=== PATIENT | female | born 1965 | race Caucasian/White ===

== ENCOUNTER 2016-06-06 13:31 | Emergency (ER) | payer BC, OTHER ==
[~2016-06-06] VITALS: Ht 157.5 cm; Wt 79.9 kg
[~2016-06-06 13:31] MED LIST: AMPH30CA3 PO; BUTA1CAP17; CIPR-255 PO; FLUO20CA36 PO; QUET5TAB PO; TPM100 PO
[2016-06-06 13:45] VITALS: TEMP 37; Ht 157.5 cm; Wt 79.9 kg
[2016-06-06] MEDS ORDERED: SODIUM CHLORIDE 0.9% 1000ML 1,000 ML IV STA (15:01)
[2016-06-06] MEDS ORDERED: MoRPHine SULFATE 4 MG/ML 1 ML CARP\\VIAL IV STA (15:01)
[2016-06-06] MEDS ORDERED: ONDANSETRON INJ 2 MG/ML 2 ML VIAL IV STA (15:01)
--- NOTE | 2016-06-06 15:12 | EMERGENCY ROOM VISIT NOTE ---
History First contact with patient: 14:51 Chief Complaint: BACK PAIN Stated Complaint: BACK PAIN, LEFT SIDE NAUSEA, HOT History of Present Illness The patient is a 50 year old female who presents to the Emergency Room with complaints of left flank pain. The patient states her symptoms started 2 days ago. The patient states it is in the left flank. She states that it does not radiate. She rates her discomfort a 10/10. She reports associated nausea. She denies any fevers. She denies any gross hematuria, dysuria, urgency or frequency. She denies any pain in her chest or trouble breathing. The patient has a history of kidney stones and states this feels similar. She sees Dr. Onelia Avalos. The patient denies any vaginal bleeding or discharge. She is sexually active with more than one partner. Review of Systems A 10 system review of systems was completed with positives and pertinent negatives listed in the HPI. Past Medical/Surgical History Medical Problems: (1) Anxiety State Nos (2) Hyperlipidemia Nec/Nos (3) Sleep Arousal Disorder (4) Urin Tract Infection Nos Social History Smoking Status: Never Smoker Housing Status: lives with family Current/Historical Medications Scheduled Amphetamine-Dextroamphetamine 30MG (Adderall Xr 30MG), 30 MG PO DAILY Doxepin Hcl (Doxepin), 75 MG PO QPM Doxycycline (Monohydrate) (Doxycycline Monohydrate), 100 MG PO BID Fluoxetine HCl (Fluoxetine HCl), 80 MG PO DAILY Metronidazole (Flagyl), 500 MG PO BID Ondasetron Odt (Zofran Odt), 4 MG SL Q6H Topiramate (Topamax), 150 MG PO DAILY Scheduled PRN Oxycodone Ir (Roxicodone Ir), 1-2 TAB PO Q4H PRN for Pain Allergies Coded Allergies: Rizatriptan (Verified Allergy, Mild, GI SYMPTOMS, 06/06/16) Physical Exam Vital Signs Date Time Temp Pulse Resp B/P Pulse Ox O2 Delivery O2 Flow Rate FiO2 06/06/16 21:03 77 18 122/83 96 06/06/16 19:25 83 16 125/78 95 Room Air 06/06/16 16:00 91 16 127/81 99 Room Air 06/06/16 13:45 37.0 57 16 143/77 96 Physical Exam VITALS: Vitals are noted on the nurse's note and reviewed by myself. Vital signs stable. The patient is afebrile. GENERAL: This is a 50-year-old female, in no acute distress, nondiaphoretic, well-developed well-nourished. SKIN: The skin was without rashes, erythema, edema, or bruising. There is no tenting of the skin. Capillary reflex less than 2 seconds. HEAD: Normocephalic atraumatic. EARS: The external ears are normal in appearance. EYES: Pupils equal round and reactive to light and accommodation. Conjunctivae without injection, sclerae without icterus. Extraocular movements intact. NOSE: Patent, turbinates without inflammation or discharge. MOUTH: Mucous membranes moist. Tonsils are not enlarged. Pharynx without erythema or exudate. Uvula midline. Airway patent. Tongue does not deviate. NECK: Supple without nuchal rigidity. No JVD. HEART: Regular rate and rhythm without murmurs gallops or rubs. LUNGS: Clear to auscultation bilaterally without wheezes, rales or rhonchi. No retractions or accessory muscle use. ABDOMEN: Positive bowel sounds x 4. Soft, nontender, without masses or organomegaly. : The external genitalia is normal in appearance. There is moderate frothy white discharge noticed in the vaginal canal. There is no bleeding. There is very minimal cervical motion tenderness. There is right adnexal tenderness. A female RN was present for the exam and pelvic cultures were obtained. MUSCULOSKELETAL: No muscle atrophy, erythema, or edema noted. Full range of motion in all extremities. Normal gait. Strength 5/5 throughout. NEURO: Patient was alert and oriented to person place and time. No focal neurological deficits. Medical Decision & Procedures ER Provider Diagnostic Interpretation: ABDOMEN AND PELVIS CT WITHOUT CONTRAST CT DOSE: 987.73 mGycm HISTORY: left flank pain TECHNIQUE: Multiaxial CT images of the abdomen and pelvis were performed without the use of intravenous and oral contrast according to the standard department stone protocol. COMPARISON STUDY: Abdomen and pelvis CT 01/17/2016. FINDINGS: Stable subcentimeter nodules in the lung bases measuring up to 4 mm. No pneumoperitoneum. No pneumatosis. No fractures within the visualized osseous structures. Hepatic steatosis. Stable appearance to the pancreas. The adrenal glands, spleen, and gallbladder are unremarkable. No retroperitoneal lymphadenopathy. Minimal right perinephric edema is likely chronic. There is a punctate stone within the lower pole of the right kidney. No right-sided hydronephrosis. Bladder is not well-distended but appears unremarkable. There is a 3 mm obstructing stone within the left ureteropelvic junction. This results in mild left hydronephrosis and left perinephric fat stranding. No additional left renal calculi. Suboptimal evaluation for bowel pathology due to the lack of intravenous and oral contrast. However, there is no definite bowel wall thickening or obstruction. Colonic diverticulosis. Normal appendix. IMPRESSION: 1. A 3 mm obstructing stone within the left ureteropelvic junction resulting in mild left hydronephrosis. 2. Right-sided nephrolithiasis. No right-sided hydronephrosis. 3. Stable subcentimeter pulmonary nodules. [~ rep ct add3]] KUB CLINICAL HISTORY: left flank pain, h/o stones nephrocalcinosis COMPARISON STUDY: 01/07/2014 FINDINGS: The soft tissues, psoas shadows, renal outlines and intestinal gas pattern appear normal. There is no evidence for bowel obstruction. No abnormal abdominal calcifications are seen. Several pelvic calcifications primarily on the right which perhaps slightly progressive from the prior study. HISTORY:, However as of contralateral pain with these therefore statistically vascular IMPRESSION: No acute process. Slightly progressive right pelvic calcifications opposite to the site of clinical symptomatology, and therefore of doubtful clinical significance. Laboratory Results 06/06/16 15:05 Red Blood Count 5.04, Mean Corpuscular Volume 90.9, Mean Corpuscular Hemoglobin 31.3, Mean Corpuscular Hemoglobin Concent 34.5, Mean Platelet Volume 10.3, Neutrophils (%) (Auto) 87.8, Lymphocytes (%) (Auto) 8.7, Monocytes (%) (Auto) 2.7, Eosinophils (%) (Auto) 0.1, Basophils (%) (Auto) 0.2, Neutrophils # (Auto) 15.42, Lymphocytes # (Auto) 1.52, Monocytes # (Auto) 0.47, Eosinophils # (Auto) 0.02, Basophils # (Auto) 0.03 06/06/16 15:05 Test 06/06/16 14:55 06/06/16 15:05 06/06/16 18:35 Urine Color YELLOW Urine Appearance TURBID (CLEAR) Urine pH 5.0 (4.5-7.5) Urine Specific [place] 1.019 (1.000-1.030) Urine Protein NEG (NEG) Urine Glucose (UA) NEG (NEG) Urine Ketones 1+ (NEG) Urine Occult Blood 3+ (NEG) Urine Nitrite NEG (NEG) Urine Bilirubin NEG (NEG) Urine Urobilinogen NEG (NEG) Urine Leukocyte Esterase SMALL (NEG) Urine WBC (Auto) >30 /hpf (0-5) Urine RBC (Auto) >30 /hpf (0-4) Urine Hyaline Casts (Auto) 1-5 /lpf (0-5) Urine Epithelial Cells (Auto) >30 /lpf (0-5) Urine Bacteria (Auto) 2+ (NEG) Urine Pathogenic Casts /lpf (0) Urine Yeast (Auto) (NONE PRSENT) White Blood Count 17.54 K/uL (4.8-10.8) Red Blood Count 5.04 M/uL (4.2-5.4) Hemoglobin 15.8 g/dL (12.0-16.0) Hematocrit 45.8 % (37-47) Mean Corpuscular Volume 90.9 fL (80-100) Mean Corpuscular Hemoglobin 31.3 pg (25-34) Mean Corpuscular Hemoglobin Concent 34.5 g/dl (32-36) Platelet Count 287 K/uL (130-400) Mean Platelet Volume 10.3 fL (7.4-10.4) Neutrophils (%) (Auto) 87.8 % Lymphocytes (%) (Auto) 8.7 % Monocytes (%) (Auto) 2.7 % Eosinophils (%) (Auto) 0.1 % Basophils (%) (Auto) 0.2 % Neutrophils # (Auto) 15.42 K/uL (1.4-6.5) Lymphocytes # (Auto) 1.52 K/uL (1.2-3.4) Monocytes # (Auto) 0.47 K/uL (0.11-0.59) Eosinophils # (Auto) 0.02 K/uL (0-0.5) Basophils # (Auto) 0.03 K/uL (0-0.2) RDW Standard Deviation 43.8 fL (36.4-46.3) RDW Coefficient of Variation 13.3 % (11.5-14.5) Immature Granulocyte % (Auto) 0.5 % Immature Granulocyte # (Auto) 0.08 K/uL (0.00-0.02) Anion Gap 9.0 mmol/L (3-11) Est Creatinine Clear Calc Drug Dose 74.9 ml/min Estimated GFR () 87.6 Estimated GFR (Non- 75.6 BUN/Creatinine Ratio 18.8 (10-20) Calcium Level 9.1 mg/dl (8.5-10.1) Total Bilirubin 0.3 mg/dl (0.2-1) Aspartate Amino Transf (AST/SGOT) 23 U/L (15-37) Alanine Aminotransferase (ALT/SGPT) 36 U/L (12-78) Alkaline Phosphatase 95 U/L (45-117) Total Protein 8.1 gm/dl (6.4-8.2) Albumin 4.1 gm/dl (3.4-5.0) Globulin 4.0 gm/dl (2.5-4.0) Albumin/Globulin Ratio 1.0 (0.9-2) Date/Time Source Procedure Growth Status 06/06/16 18:35 Vaginal Swab Trichomonas Preparation - Final Complete Medications Administered Medications (Trade) Dose Ordered Sig/Lily Route Start Time Stop Time Status Last Admin Dose Admin Sodium Chloride (Nss 1000ml) 1,000 ml @ 999 mls/hr Q1H1M STAT IV 06/06/16 15:01 06/06/16 16:01 DC 06/06/16 15:54 999 MLS/HR Ondansetron HCl (Zofran Inj) 4 mg NOW STAT IV 06/06/16 15:01 06/06/16 15:02 DC 06/06/16 15:53 4 MG Morphine Sulfate 4 mg 4 mg NOW STAT IV 06/06/16 15:01 06/06/16 15:02 DC 06/06/16 15:53 4 MG Ceftriaxone Sodium/Dextrose (Rocephin Inj/D5 25ml) 27.5 ml @ 55 mls/hr ONE STAT IV 06/06/16 19:40 06/06/16 20:09 DC 06/06/16 20:19 55 MLS/HR Oxycodone HCl (Roxicodone Immediate Rel 5MG Home Pack) 1 homepack UD ONCE PO 06/06/16 20:30 06/06/16 20:31 DC 06/06/16 20:30 1 HOMEPACK Ondansetron HCl (ZOFRAN ODT 4MG Home Pack) 1 homepack UD ONCE PO 06/06/16 20:30 06/06/16 20:31 DC 06/06/16 20:30 1 HOMEPACK ED Course The patient was seen and examined. Previous visits were reviewed. The patient does not have a fever. She does have a leukocytosis of 17.54. She does not have any significant electrolyte abnormality. Initially, a clean-catch urinalysis was obtained and suggested contamination versus urinary tract infection. Then, a straight cath was performed and this urinalysis reveals only blood and epithelial cells. I did contact microbiology to ensure that a culture would be run on the cathed urine specimen. The order was placed at that did not do a reflux culture. Pelvic cultures are pending. CT scan of abdomen and pelvis reveals a 3 mm stone at the left UPJ KUB did not reveal any obvious abnormality The patient was hydrated with normal saline She was given 4 mg IV morphine and 4 mg IV Zofran and her pain resolved The patient was given 250 mg IV Rocephin The patient presents to the emergency department with severe left-sided flank pain. She has a history of kidney stones and states this feels similar. Initially a KUB did not reveal any left-sided kidney stone. A CT scan however did indicate a 3 mm left sided stone at the UPJ. A cath urine specimen likely reflects the kidney stone with blood and epithelial cells. She was given a prescription for Zofran and OxyIR. She should contact urology for a follow-up appointment. The patient states she has had multiple positive urinalysis in the past but has never had urinary symptoms. She denies any vaginal discharge but does have multiple sexual partners. The cath urine specimen suggests that the clean catch specimen was contaminated. Therefore, I did perform a pelvic exam. The patient has moderate white frothy discharge and very minimal cervical motion tenderness. The patient will be empirically treated with 250 mg Rocephin, doxycycline 100 mg by mouth twice a day 14 days for potential PID and Flagyl twice a day 14 days for potential bacterial vaginosis. The patient should return with any worsening symptoms The case was discussed with who agrees with the assessment and treatment plan Medical Decision DIFFERENTIAL DIAGNOSIS: Hepatitis, cholecystitis, cholangitis, biliary colic, pancreatitis, pneumonia, subdiaphragmatic abscess, appendicitis, inguinal hernia , nephrolithiasis, inflammatory bowel disease, mesenteric adenitis, peptic ulcer disease, GERD, gastritis, pancreatitis, myocardial infarction, pericarditis, ruptured aortic aneurysm, appendicitis, gastroenteritis, bowel obstruction, splenic infarct, diverticulitis, mesenteric ischemia, metabolic, peritonitis, Pelvic inflammatory disease, ovarian cyst, ovarian torsion, ovarian rupture, , ectopic , endometriosis, endometritis, urinary tract infection, ruptured ovarian cyst, tubo-ovarian abscess, among others. [place] Drug Monitoring Program Search Results: patient reviewed within database, no issues identified Impression Primary Impression: Kidney stone Additional Impression: Pelvic infection Departure Information Dispostion Home / Self-Care Condition GOOD Prescriptions Metronidazole (Flagyl) 500 Mg Tab 500 MG PO BID for 14 Days, #28 TAB Prov: Mindy Garrison PA-C 06/06/16 Doxycycline (Monohydrate) (DOXYCYCLINE MONOHYDRATE) 100 Mg Tab 100 MG PO BID for 14 Days, #28 CAP Prov: Mindy Garrison PA-C 06/06/16 Ondasetron Odt (ZOFRAN ODT) 4 Mg Tab 4 MG SL Q6H for Nausea, #20 TAB Prov: Mindy Garrison PA-C 06/06/16 Oxycodone Ir (Roxicodone Ir) 5 Mg Tab 1-2 TAB PO Q4H Y for Pain, #36 TAB For Initial Treatment Prov: Mindy Garrison PA-C 06/06/16 Referrals Deepthi Christianson D.OLeonel (PCP) Onelia Avalos MD Forms HOME CARE DOCUMENTATION FORM, IMPORTANT VISIT INFORMATION, Work Instructions Return To Work: 2 days Patient Instructions ED Vaginosis Bacterial, Kidney Stones, [facility] Additional Instructions Oxy IR 1-2 tablets every 4-6 hrs as needed for severe pain. No driving or alcohol use with Oxy IR. Zofran as prescribed, as needed for nausea Strain your urine Contact Dr. Avalos' office on Thursday for a follow-up appointment regarding the kidney stone Return with any fevers or pain that cannot be managed at home Flagyl and doxycycline as prescribed to treat for potential pelvic inflammatory disease and bacterial vaginosis You may contact the emergency department [phone] to check on culture results in 4-5 days Problem Qualifiers
[2016-06-06 15:20] LABS: BASO % 0.2 %; BASO ABS # 0.03 K/uL (0-0.2); COMPLETE YES; EOS % 0.1 %; HEMATOCRIT 45.8 % (37-47); IG% 0.5 %; LYMPH % 8.7 %; LYMPH ABS # 1.52 K/uL (1.2-3.4); MEAN CELL VOLUME 90.9 fL (80-100); MEAN CORPUSCULAR HEMOGLOBIN 31.3 pg (25-34); MEAN CORPUSCULAR HGB CONC 34.5 g/dl (32-36); MEAN PLATELET VOLUME 10.3 fL (7.4-10.4); MONO % 2.7 %; NEUT % 87.8 %; PLATELET COUNT 287 K/uL (130-400); RED BLOOD COUNT 5.04 M/uL (4.2-5.4); WHITE BLOOD COUNT 17.54 K/uL (4.8-10.8)
[2016-06-06] MEDS ORDERED: DXP/75 PO (15:25)
[2016-06-06] MEDS ORDERED: TPM/50 PO (15:25)
[2016-06-06 15:37] LABS: BUN/CREATININE RATIO 18.8 (10-20); CALCIUM 9.1 mg/dl (8.5-10.1); CREATININE 0.9 mg/dl (0.60-1.20); POTASSIUM 4.1 mmol/L (3.5-5.1)
[2016-06-06 15:40] LABS: MANUAL MICROSCOPIC REQUIRED? NO; REVIEW REQ? YES; URINE APPEARANCE TURBID (CLEAR); URINE BILIRUBIN NEG (NEG); URINE COLOR YELLOW; URINE EPITHELIAL CELL AUTO >30 /lpf (0-5); URINE NITRITE NEG (NEG); URINE SPECIFIC GRAVITY 1.019 (1.000-1.030); UROBILINOGEN NEG (NEG); ZZUR CULT IF INDIC CLEAN CATCH YES
--- NOTE | 2016-06-06 15:50 | DIAGNOSTIC IMAGING REPORT ---
KUB CLINICAL HISTORY: left flank pain, h/o stones nephrocalcinosis COMPARISON STUDY: 01/07/2014 FINDINGS: The soft tissues, psoas shadows, renal outlines and intestinal gas pattern appear normal. There is no evidence for bowel obstruction. No abnormal abdominal calcifications are seen. Several pelvic calcifications primarily on the right which perhaps slightly progressive from the prior study. HISTORY:, However as of contralateral pain with these therefore statistically vascular IMPRESSION: No acute process. Slightly progressive right pelvic calcifications opposite to the site of clinical symptomatology, and therefore of doubtful clinical significance. Electronically signed by: Vlad Springer M.D. 06/06/2016 3:48 PM Dictated Date/Time: 06/06/2016 3:46 PM
[2016-06-06 18:46] LABS: URINE APPEARANCE CLEAR (CLEAR); URINE BILIRUBIN NEG (NEG); URINE COLOR YELLOW; URINE EPITHELIAL CELL AUTO 20-30 /lpf (0-5); URINE NITRITE NEG (NEG); URINE PH 7.5 (4.5-7.5); UROBILINOGEN NEG (NEG); ZZURINE CULT IF INDIC CATH NO
[2016-06-06 18:48] LABS: MANUAL MICROSCOPIC REQUIRED? NO; REVIEW REQ? NO
--- NOTE | 2016-06-06 19:28 | DIAGNOSTIC IMAGING REPORT ---
ABDOMEN AND PELVIS CT WITHOUT CONTRAST CT DOSE: 987.73 mGycm HISTORY: left flank pain TECHNIQUE: Multiaxial CT images of the abdomen and pelvis were performed without the use of intravenous and oral contrast according to the standard department stone protocol. COMPARISON STUDY: Abdomen and pelvis CT 01/17/2016. FINDINGS: Stable subcentimeter nodules in the lung bases measuring up to 4 mm. No pneumoperitoneum. No pneumatosis. No fractures within the visualized osseous structures. Hepatic steatosis. Stable appearance to the pancreas. The adrenal glands, spleen, and gallbladder are unremarkable. No retroperitoneal lymphadenopathy. Minimal right perinephric edema is likely chronic. There is a punctate stone within the lower pole of the right kidney. No right-sided hydronephrosis. Bladder is not well-distended but appears unremarkable. There is a 3 mm obstructing stone within the left ureteropelvic junction. This results in mild left hydronephrosis and left perinephric fat stranding. No additional left renal calculi. Suboptimal evaluation for bowel pathology due to the lack of intravenous and oral contrast. However, there is no definite bowel wall thickening or obstruction. Colonic diverticulosis. Normal appendix. IMPRESSION: 1. A 3 mm obstructing stone within the left ureteropelvic junction resulting in mild left hydronephrosis. 2. Right-sided nephrolithiasis. No right-sided hydronephrosis. 3. Stable subcentimeter pulmonary nodules. Electronically signed by: Raymon Russell M.D. 06/06/2016 7:26 PM Dictated Date/Time: 06/06/2016 7:20 PM
[2016-06-06] MEDS ORDERED: CEFTRIAXONE SOD INJ 250 MG in DEXTROSE 5% 25ML 25 ML IV STA (19:40)
[2016-06-06] MEDS ORDERED: ONDA4TAB10 SL (19:45)
[2016-06-06] MEDS ORDERED: METR-163 PO (19:45)
[2016-06-06] MEDS ORDERED: DOXY100T17 PO (19:45)
[2016-06-06] MEDS ORDERED: OXYC1TAB3 PO (19:45)
[2016-06-06] MEDS ORDERED: OXYCODONE IR HOME PACK PO ONE (20:30)
[2016-06-06] MEDS ORDERED: ONDANSETRON HOME PACK 4MG OD TAB PO ONE (20:30)
[2016-06-06 21:03] VITALS: BP 122/83; PULSE 77; O2SAT 96
[2016-06-10 00:01] LABS: CHLAMYDIA TRACH RNA*** NOT DETECTED (NOT DETECTED); GC (NEIS GONORRHOEAE)RNA** NOT DETECTED (NOT DETECTED)
== END 2016-06-06 21:05 | disposition home or self-care (01) ==
LOC: C.EDB 13:32 → C.EDC 21:05
DX: N20.1 Calculus of ureter (principal); E78.5 Hyperlipidemia, unspecified; F41.9 Anxiety disorder, unspecified; G47.9 Sleep disorder, unspecified; Z87.440 Personal history of urinary (tract) infections; Z79.899 Other long term (current) drug therapy; Z88.8 Allergy status to other drugs, medicaments and biological substances

== ENCOUNTER → 2017-05-25 | Outpatient (CLI) | payer OTHER ==
[~2017-05-25] MED LIST changes: -BUTA1CAP17; -CIPR-255 PO; +DOXY100T17 PO; +DXP/75 PO; -QUET5TAB PO; +TPM/50 PO; -TPM100 PO
--- NOTE | 2017-05-26 13:05 | MAMMOGRAPHY REPORT ---
BILATERAL DIGITAL SCREENING MAMMOGRAM TOMOSYNTHESIS WITH CAD: 05/25/2017 CLINICAL HISTORY: Routine screening. TECHNIQUE: Breast tomosynthesis in addition to standard 2D mammography was performed. Current study was also evaluated with a Computer Aided Detection (CAD) system. COMPARISON: Comparison is made to exams dated: 11/08/2015 mammogram, 09/21/2014 mammogram, 05/30/2013 ma mmogram, 12/18/2011 mammogram, 02/06/2010 mammogram - [facility], and 02/11/2008. BREAST COMPOSITION: There are scattered areas of fibroglandular density in both breasts. FINDINGS: There is evidence of prior bilateral breast surgery. No new suspicious mass, architectural distortion or cluster of microcalcifications is seen. IMPRESSION: ACR BI-RADS CATEGORY 1: NEGATIVE There is no mammographic evidence of malignancy. A 1 year screening mammogram is recommended. The pa tient will receive written notification of the results. Approximately 10% of breast cancers are not detected with mammography. A negative mammographic report should not delay biopsy if a clinically suggestive mass is present. Denise Piña M.D. ay/:05/25/2017 17:28:32 Medical Laboratory Technical Officer: Ryne IYER(Samia)([place]), [facility] letter sent: Normal 1/2 BI-RADS Code: ACR BI-RADS Category 1: Negative
== END | disposition home or self-care (01) ==
LOC: C.MAMM 14:31
PROVIDERS: ATTEND Obstetrics & Gynecology
DX: Z12.31 Encounter for screening mammogram for malignant neoplasm of breast (principal)

== ENCOUNTER → 2017-06-18 | Outpatient (CLI) | payer OTHER | END | disposition home or self-care (01) | LOC: C.LABSPEC 13:30 | PROVIDERS: ATTEND Physician Assistant | DX: Z12.4 Encounter for screening for malignant neoplasm of cervix (principal); R35.0 Frequency of micturition ==

== ENCOUNTER → 2017-07-06 | Outpatient (CLI) | payer OTHER ==
--- NOTE | 2017-07-06 13:45 | DIAGNOSTIC IMAGING REPORT ---
RENAL ULTRASOUND HISTORY: HEMATURIA COMPARISON: Abdomen and pelvis CT 06/06/2016. FINDINGS: Right kidney: 11.6 cm. Mild fullness within the renal pelvis. However, no hydronephrosis. Normal corticomedullary differentiation and cortical thickness. Left kidney: 12.6 cm. Mild fullness within the renal pelvis. However, no hydronephrosis. Normal corticomedullary differentiation and cortical thickness. Bladder: No bladder wall thickening. The bilateral ureteral jets were identified. IMPRESSION: 1. Mild fullness within the bilateral renal pelves. However, no hydronephrosis. 2. Normal bladder. Electronically signed by: Raymon Russell M.D. 07/06/2017 1:44 PM Dictated Date/Time: 07/06/2017 1:41 PM
== END | disposition home or self-care (01) ==
LOC: C.ULTR 12:38
PROVIDERS: ATTEND Nurse Practitioner Family
DX: R82.99 Other abnormal findings in urine (principal); R31.9 Hematuria, unspecified